=== PATIENT | male | born 1950 | race Hispanic/Latino ===

== ENCOUNTER → 2017-09-25 | Day surgery (SDC) | payer OTHER ==
[2017-09-23 10:10] LABS: BASOPHILS # (AUTO) 0.1 (0.0-0.1); BASOPHILS % 1.1 % (0.0-1.0); EOSINOPHILS # (AUTO) 0.4 (0.0-0.4); EOSINOPHILS % 7.8 % (0.0-6.0); HEMATOCRIT 40.9 % (38.2-49.6); HEMOGLOBIN 14.4 g/dL (14.0-18.0); LYMPHOCYTES # (AUTO) 1.6 (1.0-3.2); LYMPHOCYTES % 34.4 % (18.0-39.1); MEAN CORPUSCULAR HEMOGLOBIN 33.2 pg (28-32); MEAN CORPUSCULAR HGB CONC 35.2 g/dL (31-35); MEAN CORPUSCULAR VOLUME 94.2 fL (81-99); MONOCYTES # (AUTO) 0.5 (0.2-0.8); NEUTROPHILS % 44.5 % (38.7-80.0); PLATELET COUNT 92 x10e3/uL (140-360); RED BLOOD COUNT 4.34 x10e6/uL (4.3-5.7); RED CELL DISTRIBUTION WIDTH 11.9 % (11.7-14.4)
[2017-09-23 10:34] LABS: ANION GAP 11.6 mmol/L (8-16); BLOOD UREA NITROGEN 18 mg/dL (7-26); BUN/CREATININE RATIO 21 (6-25); CALCIUM 9.7 mg/dL (8.4-10.2); CARBON DIOXIDE 30 mmol/L (22-29); CHLORIDE 102 mmol/L (98-107); CREATININE, SERUM 0.87 mg/dL (0.72-1.25); EST GLOMERULAR FILTRATION RATE > 60 ML/MIN (60-); GLUCOSE 147 mg/dL (74-118); POTASSIUM 4.6 mmol/L (3.5-5.1); SODIUM 139 mmol/L (136-145)
--- NOTE | 2017-09-23 11:00 | Diagnostic Imaging Report ---
PROCEDURE: X-RAY CHEST, TWO VIEWS COMPARISON: None. INDICATIONS: PRE-OP FINDINGS: LUNGS: No consolidations or edema. PLEURA: No effusions or pneumothorax. HEART \T\ MEDIASTINUM: The heart is within normal size-limits. BONES \T\ SOFT TISSUES: No acute findings. Degenerative changes of the spine. CONCLUSION: No acute thoracic abnormality. Allan Brown D.O. Dictated by: Allan Brown D.O. on 09/23/2017 at 11:01 Electronically approved by: Allan Brown D.O. on 09/23/2017 at 11:01
[~2017-09-25] MED LIST: ANTIBIOTIC PO; ANTIBIOTIC28.4 GM; BACITRACIN 50,000 UNIT VIAL ONE; CEFAZOLIN SOD 1 GM VIAL ONE; DAILY VITAMIN; FENTANYL CITRATE/PF 100MCG/2 ML INJ ONE; FISH OIL; LIDOCAINE 1% W/EPINEPHRINE 20 ML VIAL ONE; LISINOPRIL2.5 MG PO; METFORMIN HCL500 MG PO; MIDAZOLAM HCL 2 MG/2 ML VIAL ONE; MUPIROCIN 2% OINT 22 GM TUBE ONE
--- OUTSIDE RECORDS SUMMARY | 2017-09-25 07:06 | XMS REPORT ---
[facility] Address Unknown Phone Unavailable Care Team Providers Care Optomechanical Technician Name Role Phone KELTON PETERS Unavailable Unavailable Problems This patient has no known problems. Allergies, Adverse Reactions, Alerts This patient has no known allergies or adverse reactions. Medications This patient has no known medications. Results Test Description Test Time Test Comments Text Results Atomic Results Result Comments CHEST 2 VIEWS [place] [address] Patient Name: CHERYL JOHNSON MR #: [id number] : 1950 Age/Sex: 67/M Req # : [id number] Adm Physician: Ordered by: MANJINDER DANIELLE MD Report #: [id number] Location: OR Room/Bed: Procedure: [id number] DX/CHEST 2 VIEWS Exam Date: 09/23/17 Exam Time: 1015 REPORT STATUS: Signed PROCEDURE: X-RAY CHEST, TWO VIEWS COMPARISON: None. INDICATIONS: PRE-OP FINDINGS: LUNGS: No consolidations or edema. PLEURA: No effusions or pneumothorax. HEART T MEDIASTINUM: The heart is within normal size-limits. BONES T SOFT TISSUES: No acute findings. Degenerative changes of the spine. CONCLUSION: No acute thoracic abnormality. Chucky Brown D.O. Dictated by: Chucky Brown D.O. on 09/23/2017 at 11:01 Electronically approved by: Chucky Brown D.O. on 09/23/2017 at 11:01 Dictated By: CHUCKY BROWN DO [id number] Transcribed By: ESTEVAN on 09/23/17 1101 COPY TO: MANJINDER DANIELLE MD
--- NOTE | 2017-09-26 12:06 | Operative Report ---
DATE OF PROCEDURE: September 25, 2017 PREOPERATIVE DIAGNOSIS: Open wound, right leg, status post crush injury. POSTOPERATIVE DIAGNOSIS: Open wound, right leg, status post crush injury. PROCEDURE PERFORMED: Sharp excisional debridement of wound, right leg, 15 cm squared. ANESTHESIA: General. HISTORY: The patient is a 67-year-old male who back around May or June of this year sustained a crushing injury to the right lower leg. He developed a hematoma at the site, and the treatment was largely observation. The overlying soft tissues sloughed secondary to the hematoma. The patient was left with an open wound. He has been managed by our wound care center and presented to my office late last week. The wound has devitalized tissue at its base consisting of what appear to be ligamentous or tendinous structures. The edges of the wound are full of devitalized tissue, and the entire measurement to the wound is 1 cm x 4 cm long and approximately 1 to 2 cm deep. The risks, benefits and alternatives of treatment were discussed with the patient and the family. They are prepared to undergo the procedures outlined. DETAILS OF PROCEDURE: Patient was marked preoperatively in the holding area. He was brought to the operating theater. After the induction of adequate general anesthesia, he was prepped and draped in a supine position. A time out was performed. The procedure was begun by sharply excising all of the devitalized tissue which had accumulated, and the excision was carried down to the tendinous structures of the right lower leg. Once all the devitalized tissue had been removed, the wound was pulse lavaged with antibiotic-containing solution. The wound was made hemostatic using electrocautery. Antibiotic ointment and a sterile dressing were then applied. The patient was returned to the recovery room in satisfactory condition and discharged with a postoperative instruction sheet as well as a followup appointment. Job#: [id number]
== END | disposition home or self-care (01) ==
LOC: OR 07:04
PROVIDERS: ATTEND Plastic Surgery
DX: S81.801A Unspecified open wound, right lower leg, initial encounter (principal); I10 Essential (primary) hypertension; E11.9 Type 2 diabetes mellitus without complications; X58.XXXA Exposure to other specified factors, initial encounter; Z01.810 Encounter for preprocedural cardiovascular examination; Z01.812 Encounter for preprocedural laboratory examination; Z01.818 Encounter for other preprocedural examination
CPT/HCPCS: 11043; 36415 ×2; 71046; 80048; 82948; 85025; 93005; J0690; J2250

== ENCOUNTER 2017-09-29 08:12 | Outpatient (RCR) | payer OTHER ==
[~2017-09-29 08:12] MED LIST changes: -BACITRACIN 50,000 UNIT VIAL ONE; -CEFAZOLIN SOD 1 GM VIAL ONE; -FENTANYL CITRATE/PF 100MCG/2 ML INJ ONE; -LIDOCAINE 1% W/EPINEPHRINE 20 ML VIAL ONE; -MIDAZOLAM HCL 2 MG/2 ML VIAL ONE; -MUPIROCIN 2% OINT 22 GM TUBE ONE
== END 2017-10-06 ==
LOC: WCC 08:12
PROVIDERS: ATTEND Plastic Surgery
DX: E11.9 Type 2 diabetes mellitus without complications (principal); S87.81XA Crushing injury of right lower leg, initial encounter; X58.XXXA Exposure to other specified factors, initial encounter; I10 Essential (primary) hypertension

== ENCOUNTER 2017-10-27 09:50 | Outpatient (RCR) | payer OTHER ==
[~2017-10-27 09:50] MED LIST changes: +LIDOCAINE VISC 2% SOLN 15 ML UDC ONE
== END 2017-11-06 ==
LOC: WCC 09:50
PROVIDERS: ATTEND Plastic Surgery
DX: E11.9 Type 2 diabetes mellitus without complications (principal); I10 Essential (primary) hypertension; S87.81XA Crushing injury of right lower leg, initial encounter; X58.XXXA Exposure to other specified factors, initial encounter

== ENCOUNTER 2017-11-10 10:29 | Outpatient (RCR) | payer OTHER ==
[~2017-11-10 10:29] MED LIST changes: -LIDOCAINE VISC 2% SOLN 15 ML UDC ONE
== END 2017-12-06 ==
LOC: WCC 10:29
PROVIDERS: ATTEND Plastic Surgery
DX: E11.9 Type 2 diabetes mellitus without complications (principal); I10 Essential (primary) hypertension; S87.81XA Crushing injury of right lower leg, initial encounter; X58.XXXA Exposure to other specified factors, initial encounter